=== PATIENT | male | born 1945 | race Caucasian/White ===

== ENCOUNTER 2017-05-04 04:04 | Emergency (ER) | payer MEDICARE ==
--- NOTE | 2017-05-04 04:40 | ED ---
Complaint/Male - History of Current Complaint Chief Complaint: EDUrogenitalProblems Time Seen by Provider: 05/04/17 04:32 PMH/Surg Hx/FS Hx/Imm Hx Infectious Disease History: No Infectious Disease History: Denies: Traveled Outside the [place] in Last 30 Days - Social History Alcohol Use: None Substance Use Type: Reports: None Smoking Status (MU): Heavy Every Day Tobacco Smoker Physical Exam Vital Signs On Initial Exam: Initial Vitals Temp Pulse Resp BP Pulse Ox 97.6 F 51 18 107/58 98 05/04/17 04:11 05/04/17 04:11 05/04/17 04:11 05/04/17 04:11 05/04/17 04:11 Diagnostics - Vital Signs Vital Signs Temp Pulse Resp BP Pulse Ox 05/04/17 04:11 97.6 F 51 18 107/58 98 - Laboratory Lab Statement: Any lab studies that have been ordered have been reviewed, and results considered in the medical decision making process.
[2017-05-04] MEDS ORDERED: oxyCODONE/Acetamin 5/325 MG* TAB PO ONE (05:14)
--- NOTE | 2017-05-04 05:15 | ED ---
Rodolfo Maya Alfonso, scribed for Mando Kang MD on 05/04/17 at 0452 . GI/ HPI - HPI Summary HPI Summary: This patient is a 71 year old male presenting to [facility] c/o a dislodged mullins catheter since approximately 1 hour ago. He reports the catheter was placed 6 days ago at [facility] and changed 5 days ago at his PCP. The sharp pain is rated 1/ 10 in severity. Sx aggravated and alleviated by nothing. - History of Current Complaint Chief Complaint: EDUrogenitalProblems Time Seen by Provider: 05/04/17 04:32 Stated Complaint: CATH ISSUE Hx Obtained From: Patient Onset/Duration: Started Hours Ago - 1 hour, Still Present - Mullins cathether Timing: Constant Severity: Mild Current Severity: Mild Pain Intensity: 1 - /10 Additional Locations for Males: Penis - Mullins catheter Pain Characteristics: Sharp Associated Signs and Symptoms: Negative: Fever Aggravating Factor(s): Nothing Alleviating Factor(s): Nothing - Allergy/Home Medications Allergies/Adverse Reactions: Allergies Allergy/AdvReac Type Severity Reaction Status Date / Time No Known Allergies Allergy Verified 05/04/17 05:29 PMH/Surg Hx/FS Hx/Imm Hx Sensory History: Denies: Hx Deafness Opthamlomology History: Denies: Hx Legally Blind Infectious Disease History: No Infectious Disease History: Denies: Traveled Outside the [place] in Last 30 Days - Family History Known Family History: Positive: Cardiac Disease - Father [place], Other - CVA in mother - Social History Alcohol Use: None Substance Use Type: Reports: None Smoking Status (MU): Heavy Every Day Tobacco Smoker Review of Systems Negative: Fever Positive: other - Dislodged mullins catheter All Other Systems Reviewed And Are Negative: Yes Physical Exam Triage Information Reviewed: Yes Vital Signs On Initial Exam: Initial Vitals Temp Pulse Resp BP Pulse Ox 97.6 F 51 18 107/58 98 05/04/17 04:11 05/04/17 04:11 05/04/17 04:11 05/04/17 04:11 05/04/17 04:11 Vital Signs Reviewed: Yes Appearance: Positive: Well-Appearing, Pain Distress - mild discomfort Skin: Positive: Warm Head/Face: Positive: Normal Head/Face Inspection Eyes: Positive: ABIEL ENT: Positive: Hearing grossly normal Neck: Positive: Supple, Nontender Respiratory/Lung Sounds: Positive: Breath Sounds Present Abdomen Description: Positive: Nontender, Soft Male Genital Exam: Positive: other - mullins catherter in place, poorly draining Musculoskeletal: Positive: Normal Diagnostics - Vital Signs Vital Signs Temp Pulse Resp BP Pulse Ox 05/04/17 04:11 97.6 F 51 18 107/58 98 - Laboratory Lab Statement: Any lab studies that have been ordered have been reviewed, and results considered in the medical decision making process. Re-Evaluation - Re-Evaluation First Eval Change: Improved - mullins catheter chasnged without complication GIGU Course/Dx - Diagnoses Provider Diagnoses: Urinary retention Discharge - Discharge Plan Condition: Improved Disposition: HOME Patient Education Materials: Mullins Catheter Placement and Care (ED) Referrals: Johanna Angeles MD [Medical Doctor] - 3 Days Additional Instructions: Follow up with a urologist. The documentation as recorded by the Rodolfo ornelas Alfonso accurately reflects the service I personally performed and the decisions made by , Mando Kang MD.
[2017-05-04 05:31] VITALS: BP 113/61
== END 2017-05-04 05:45 | disposition home or self-care (01) ==
LOC: ED 04:04
DX: R33.9 Retention of urine, unspecified (principal)
CPT/HCPCS: 99282

== ENCOUNTER 2017-05-06 18:31 | Emergency (ER) | payer MEDICARE ==
--- NOTE | 2017-05-06 20:33 | ED ---
gisel Maya Timothy, scribed for Mando Kang MD on 05/06/17 at 1918 . GI/ HPI - HPI Summary HPI Summary: Milton Bradford Sr. is a 71 yo male presenting to [facility] C/O his urinary catheter coming out since 1834 today. Pt states he layed down to take a nap and when he woke up he noticed urine running down the tube. He notes hematuria, but states this is his baseline. He is not in any current pain at this time. He saw his urologist most recently 04/29/17, and has a CT scheduled for 05/08/17. His MHx includes CVA x2. - History of Current Complaint Chief Complaint: EDUrogenitalProblems Time Seen by Provider: 05/06/17 19:12 Stated Complaint: CATHETER COMMING OUT Hx Obtained From: Patient Onset/Duration: Started Hours Ago, Still Present Timing: Constant Severity: Moderate Current Severity: Moderate Pain Intensity: 0 Associated Signs and Symptoms: Positive: Hematuria - baseline, Other: - catheter coming out - Allergy/Home Medications Allergies/Adverse Reactions: Allergies Allergy/AdvReac Type Severity Reaction Status Date / Time No Known Allergies Allergy Verified 05/04/17 05:29 PMH/Surg Hx/FS Hx/Imm Hx Sensory History: Denies: Hx Legally Blind, Hx Deafness Opthamlomology History: Denies: Hx Legally Blind Neurological History: Reports: Hx CVA - x2 Infectious Disease History: No Infectious Disease History: Denies: Traveled Outside the [place] in Last 30 Days - Family History Known Family History: Positive: Cardiac Disease - Father [place], Hypertension, Other - CVA in mother Negative: Diabetes - Social History Alcohol Use: None Substance Use Type: Reports: None Smoking Status (MU): Light Every Day Tobacco Smoker Review of Systems Constitutional: Negative Eyes: Negative ENT: Negative Cardiovascular: Negative Respiratory: Negative Gastrointestinal: Negative Positive: hematuria, other - urinary catheter coming out Musculoskeletal: Negative Skin: Negative Neurological: Negative Psychological: Normal All Other Systems Reviewed And Are Negative: Yes Physical Exam Triage Information Reviewed: Yes Vital Signs On Initial Exam: Initial Vitals Temp Pulse Resp BP Pulse Ox 97.9 F 60 20 118/83 99 05/06/17 18:34 05/06/17 18:34 05/06/17 18:34 05/06/17 18:34 05/06/17 18:34 Vital Signs Reviewed: Yes Appearance: Positive: Well-Appearing, Pain Distress - mild discomfort Skin: Positive: Warm Head/Face: Positive: Normal Head/Face Inspection Eyes: Positive: ABIEL ENT: Positive: Hearing grossly normal Neck: Positive: Supple Respiratory/Lung Sounds: Positive: Breath Sounds Present Cardiovascular: Positive: RRR Abdomen Description: Positive: Nontender, Soft Bowel Sounds: Positive: Present Male Genital Exam: Positive: other - mullins catheter with bloody urine in leg bag Neurological: Positive: Alert, Oriented to Person Place, Time Diagnostics - Vital Signs Vital Signs Temp Pulse Resp BP Pulse Ox 05/06/17 18:36 98.7 F 64 20 118/83 99 05/06/17 18:34 97.9 F 60 20 118/83 99 - Laboratory Lab Statement: Any lab studies that have been ordered have been reviewed, and results considered in the medical decision making process. Re-Evaluation - Re-Evaluation First Eval Re-Evaluation Time: 20:25 Change: Improved Comment: Mullins catheter irrigated, now flowing better, pain resolved, will d/c and have pt f/u with urology. GIGU Course/Dx - Course Assessment/Plan: Milton Bradford Sr. is a 71 yo male presenting to [facility] complaining that his urinary catheter is coming out as of 1833. Pt medication list is reviewed this visit. After clinical examination and observation, he will be discharged home with urinary retention with appropriate instructions. - Diagnoses Differential Diagnoses - Male: Other - urinary retention Provider Diagnoses: Urinary retention Discharge - Discharge Plan Condition: Improved Disposition: HOME Patient Education Materials: Urinary Retention in Men (ED), Mullins Catheter Placement and Care (ED) Referrals: Pamela Rivera NP [Primary Care Provider] - 2 Days Additional Instructions: Please follow up with your primary care physician regarding your visit to the emergency department today. Return to the emergency department with any new or recurring symptoms. The documentation as recorded by the gisel ornelas Timothy accurately reflects the service I personally performed and the decisions made by me, Mando Kang MD.
[2017-05-06 20:37] VITALS: BP 110/64
== END 2017-05-06 20:37 | disposition home or self-care (01) ==
LOC: ED 18:31
DX: R33.9 Retention of urine, unspecified (principal); R31.9 Hematuria, unspecified; F17.210 Nicotine dependence, cigarettes, uncomplicated
CPT/HCPCS: 99281